=== PATIENT | male | born 1975 | race Caucasian/White ===

== ENCOUNTER 2023-12-01 16:28 | Emergency (ER) | payer OTHER ==
[2023-12-01 17:05] VITALS: BMI 31.4
[2023-12-01 17:59] LABS: BASO % 0.1 % (0-2.0); EOS % 4.4 % (0-4.5); HEMATOCRIT 49.1 % (35.4-49); HEMOGLOBIN 15.9 GM/dL (11.7-16.9); LYMPH % 35.7 % (8-40); MCH 25.5 pg (25.7-33.7); MCHC 32.3 g/dl (32.0-35.9); MEAN CELL VOLUME 78.7 fl (80-96); MONO % 5.8 % (3.8-10.2); PLATELET COUNT 239 10^3/uL (134-434); RBC 6.24 M/mm3 (4.00-5.60); RDW 14.2 % (11.9-15.9); WHITE BLOOD COUNT 11.5 K/mm3 (4.0-10.0)
[2023-12-01 18:28] LABS: ALBUMIN 3.9 g/dl (3.4-5.0); CALCIUM 9.7 mg/dL (8.5-10.1); MAGNESIUM 1.8 mg/dL (1.8-2.4); POTASSIUM 4.1 mmol/L (3.5-5.1)
[2023-12-01 18:29] LABS: BLOOD UREA NITROGEN 12.5 mg/dL (7-18)
[2023-12-01 18:33] LABS: BILIRUBIN,TOTAL 0.4 mg/dL (0.2-1); TOT PROT 7.7 g/dl (6.4-8.2)
[2023-12-01 21:10] VITALS: BP 122/72; PULSE 76; RESP 19; TEMP 97.9
== END 2023-12-01 21:10 | disposition home or self-care (01) ==
LOC: JER 16:28
DX: R51.9 Headache, unspecified (principal); M79.10 Myalgia, unspecified site; R68.83 Chills (without fever); R42 Dizziness and giddiness; B34.9 Viral infection, unspecified; Z20.822 Contact with and (suspected) exposure to COVID-19
CPT/HCPCS: 0241U-QW; 36415; 70450-TC; 80053; 83735; 84484; 85025; 93005; 93010; 99285-25